=== PATIENT | male | born 1975 | race Caucasian/White ===

== ENCOUNTER 2021-03-08 12:39 | Emergency (ER) | payer MEDICAID, OTHER ==
[~2021-03-08] VITALS: Ht 182.9 cm; Wt 86.3 kg
[2021-03-08 12:40] VITALS: BP 124/81
[2021-03-08] MEDS ORDERED: LIDOCAINE-MPF 1%, 5ML ONE (12:44)
[2021-03-08] MEDS ORDERED: LIDOCAINE-MPF 1%, 5ML INFIL ONE (13:30)
[2021-03-08] MEDS ORDERED: NEOSPORIN OINT. PKT 1 PACKET ONE (14:36)
== END 2021-03-08 14:41 | disposition home or self-care (01) ==
LOC: ED 13:00
DX: S61.211A Laceration without foreign body of left index finger without damage to nail, initial encounter (principal); X58.XXXA Exposure to other specified factors, initial encounter; Y93.89 Activity, other specified; Y92.009 Unspecified place in unspecified non-institutional (private) residence as the place of occurrence of the external cause; Y99.8 Other external cause status
CPT/HCPCS: 12001; 99282